=== PATIENT | female | born 1960 | race African-American/Black ===

== ENCOUNTER 2024-08-21 10:20 | Day surgery (SDC) | payer OTHER ==
[2024-08-14 14:48] VITALS: BMI 28.3
[2024-08-21 10:50] VITALS: PULSE 78
[2024-08-21 11:52] VITALS: RESP 16
[2024-08-21 12:23] VITALS: BP 105/64; TEMP 97.7
== END 2024-08-21 12:37 | disposition home or self-care (01) ==
LOC: FASU-ENDO 10:20
PROVIDERS: ATTEND Internal Medicine Gastroenterology
PROC: 0DBN8ZX Excision of Sigmoid Colon, Via Natural or Artificial Opening Endoscopic, Diagnostic (ICD-10-PCS; principal; 2024-08-21 11:25)
DX: Z12.11 Encounter for screening for malignant neoplasm of colon (principal); K63.5 Polyp of colon
CPT/HCPCS: 88305-TC